=== PATIENT | female | born 1995 | race Caucasian/White ===

== ENCOUNTER 2017-04-21 22:18 | Emergency (ER) | payer MEDICAID ==
[2017-04-21 23:52] VITALS: BP 138/88
== END 2017-04-21 23:52 | disposition home or self-care (01) ==
LOC: ED 22:18
DX: S91.331A Puncture wound without foreign body, right foot, initial encounter (principal); W22.8XXA Striking against or struck by other objects, initial encounter; Y93.89 Activity, other specified; Y99.8 Other external cause status; Y92.89 Other specified places as the place of occurrence of the external cause
CPT/HCPCS: 90715

== ENCOUNTER 2018-08-18 21:25 | Emergency (ER) | payer MEDICAID ==
[~2018-08-18] VITALS: Ht 160 cm; Wt 89.4 kg
[2018-08-18 22:02] VITALS: BP 127/84
== END 2018-08-18 23:15 | disposition home or self-care (01) ==
LOC: ED 21:25
DX: S52.91XD Unspecified fracture of right forearm, subsequent encounter for closed fracture with routine healing (principal); V89.2XXD Person injured in unspecified motor-vehicle accident, traffic, subsequent encounter; R20.0 Anesthesia of skin

== ENCOUNTER 2019-05-10 09:34 | Emergency (ER) | payer MEDICAID ==
[~2019-05-10] VITALS: Ht 160 cm; Wt 74.4 kg
[2019-05-10 09:38] VITALS: Ht 160 cm; Wt 74.4 kg
[2019-05-10 12:30] VITALS: BP 129/74
== END 2019-05-10 12:30 | disposition home or self-care (01) ==
LOC: ED 09:34
DX: H10.9 Unspecified conjunctivitis (principal)

== ENCOUNTER 2020-05-18 13:56 | Emergency (ER) | payer MEDICAID ==
[~2020-05-18] VITALS: Ht 160 cm; Wt 85.7 kg
[2020-05-18 14:16] VITALS: Ht 160 cm; Wt 85.7 kg
[2020-05-18 16:35] VITALS: BP 106/66
== END 2020-05-18 16:35 | disposition home or self-care (01) ==
LOC: ED 13:56
DX: O26.892 Other specified pregnancy related conditions, second trimester (principal); H10.9 Unspecified conjunctivitis; Z3A.20 20 weeks gestation of pregnancy